=== PATIENT | male | born 1970 | race Caucasian/White ===

== ENCOUNTER → 2018-05-01 10:31 | Outpatient (CLI) | payer BC ==
[~2018-05-01 10:31] MED LIST: BUSPAR 15 MG TA15 MG PO; CARVEDILOL TAB 3.1; CYCLOBENZAPRINE10 MG PO; EFFIENT10 MG PO; LISINOPRIL2.5 MG PO; LOPRESSOR25 MG PO; NORCO 10-325 TA1 TAB PO; PRAVACHOL80 MG PO; XANAX1 MG PO
[2018-05-09 12:15] VITALS: BMI 23.4
== END | disposition home or self-care (01) ==
LOC: D.HCCARDIO 10:31
DX: I25.119 Atherosclerotic heart disease of native coronary artery with unspecified angina pectoris (principal); I42.9 Cardiomyopathy, unspecified

== ENCOUNTER 2018-05-09 10:56 | Outpatient (CLI) | payer BC ==
[~2018-05-09] VITALS: Ht 177.8 cm; Wt 74.1 kg
--- NOTE | ~2018-05-09 | HEMODYNAMI ---
PATIENT:DOUGLAS VICTORIA MEDICAL RECORD: [id number] : 72 LOCATION:[facility] ADMISSION DATE: 05/09/18 Generatedon:05/09/201813:40 Patient name: DOUGLAS VICTORIA Patient #: [id number] SSN: : 1970 Date of study: 05/09/2018 Page: Of Hemodynamic Procedure Report Patient Data Patient Demographics Procedure consent was obtained First Name: DOUGLAS Gender: Male Last Name: JULIEN : 1970 [facility] Initial: JALYN Age: 47 year(s) Patient #: [id number] Race: Unknown Additional ID: [id number] Contact details [address]: [address] [place] [address] 73 State: [place] City: [place] Zip code: [address] Admission Admission Data Admission Date: 05/09/2018 Admission Time: 10:56 Procedure Procedure Types Cath Procedure Diagnostic Procedure LHC LHC w/Coronaries PCI Procedure Coronary Stent Coronary Stent Initial Procedure Description Procedure Date Procedure Date: 05/09/2018 Procedure Start Time: 13:08 Procedure End Time: 13:32 Procedure Staff Name Function Douglas Gregg MD Performing Physician Darlene Luong RT Scrub Romero Beck RT Monitor William Murguia RN Nurse Procedure Data Cath Procedure Fluoroscopy Diagnostic fluoroscopy Total fluoroscopy Time: 4.3 time: 4.3 min min Diagnostic fluoroscopy Total fluoroscopy dose: 693 dose: 693 mGy mGy Contrast Material Contrast Material Type Amount (ml) Isovue 300 106 Entry Location Entry Primary Successful Side Size Upsize Upsize Entry Closure Succes sful Closure Location (Fr) 1 (Fr) 2 (Fr) Remarks Device Remarks Femoral Right 5 Fr 6 Fr Exoseal artery Short Diagnostic catheters Device Type Used For End Catheter Placement MULTIPACK JL 4.0 5Fr Left Coronary catheter Angiography MULTIPACK 3DRC 5Fr Right Coronary catheter Angiography MULTIPACK Pigtail 5 Fr LV Angiography catheter Procedure Complications No complications Procedure Medications Medication Administration Route Dosage 0.9% NaCl I.V. 100 ml/hr Oxygen etCO2 Nasal cannula 2 l/min Heparin Flush Bag added to field 2 bags (1000units/500ml NS) Lidocaine 2% added to field 20 Versed I.V. 2 mg Fentanyl I.V. 100 mcg Versed I.V. 2 mg Fentanyl I.V. 100 mcg Versed I.V. 2 mg Heparin Bolus I.V. 7500 units Fentanyl I.V. 100 mcg Effient P.O. 60 mg Hemodynamics Rest Heart Rate: 73 (bpm) Pressure Samples Time Site Value (mmHg) Purpose Heart Use Rate(bpm) 13:18 LV 107/-5,12 Snapshot 74 13:19 LV 103/-6,6 EDP 88 13:19 AO 95/50(71) Pullback 77 13:19 LV 110/7,9 Pullback 77 Gradients Valve Time Site 1 Site 2 Mean SEP/DFP Peak To Heart Use (mmHg) (sec/min) Peak Rate (mmHg) (bpm) Aortic 13:19 LV AO 9 20 15 77 110/7,9 95/50(71) Calculations Valve P-P Mean Valve Index Valve Source Name Gradient Area Flow (cm2) Aortic 15 9 15 9 Snapshots Pre Cath Intra NCS Post Cath Vital Signs Time Heart Resp SPO2 etCO2 NIBP (mmHg) Rhythm Pain Sedation Rate (ipm) (%) (mmHg) Status Level (bpm) 12:54:19 78 16 100 22.4 127/83(102) NSR 0 (11) 10(A) , No pain 12:58:29 74 14 100 31.4 116/73(96) NSR 0 (11) 10(A) , No pain 13:02:36 71 12 100 33.7 110/68(87) NSR 0 (11) 10(A) , No pain 13:06:40 75 14 100 37.4 108/70(83) NSR 0 (11) 10(A) , No pain 13:10:46 74 13 99 37.4 100/62(77) NSR 0 (11) 10(A) , No pain 13:14:50 69 17 97 27.7 105/63(82) NSR 0 (11) 10(A) , No pain 13:18:56 75 14 98 38.1 98/61(76) NSR 0 (11) 10(A) , No pain 13:22:57 69 22 99 35.9 104/62(77) NSR 0 (11) 10(A) , No pain 13:27:05 67 10 99 35.2 94/51(73) NSR 0 (11) 10(A) , No pain 13:31:07 84 15 98 33.7 98/61(75) NSR 0 (11) 10(A) , No pain Medications Time Medication Route Dose Verified Delivered Reason Notes Effectiveness by by 12:54:15 0.9% NaCl I.V. 100 William William Per physician ml/hr Blade Murguia RN RN 12:54:28 Oxygen etCO2 2 William William Per physician Nasal l/min Blade Murguia cannula RN RN 12:54:45 Heparin Flush added 2 William William used for Bag to bags Blade Murguia procedure (1000units/500ml RN RN NS) 12:54:55 Lidocaine 2% added 20ml William William for local to vial Blade Murguia anesthetic field DA SILVA RN 13:05:34 Versed I.V. 2 mg William William for sedation Blade Murguia RN RN 13:05:44 Fentanyl I.V. 100 William William for sedation mcg Blade Murguia RN RN 13:07:34 Versed I.V. 2 mg William William for sedation Blade Murguia RN RN 13:07:41 Fentanyl I.V. 100 William William for sedation mcg Blade Murguia RN RN 13:09:41 Versed I.V. 2 mg William William for sedation Blade Murguia RN RN 13:24:07 Heparin Bolus I.V. 7,500 William William for units Blade Murguia anticoagulation RN RN 13:24:56 Fentanyl I.V. 100 William William for sedation mcg Blade Murguia RN RN 13:33:39 Effient P.O. 60 mg William William for Blade Murguia antiplatelet RN RN therapy Procedure Log Time Note 12:39:11 Diagnostic Cath Status : Elective 12:39:40 Romero Beck RT(R) sent for patient. Start room use. 12:39:41 Time tracking: Regular hours (M-F 7:00 - 5:00) 12:39:45 Plan of Care:Hemodynamics will remain stable., Cardiac rhythm will remain stable., Comfort level will be maintained., Respiratory function will remain adequate., Patient/ family verbilizes understanding of procedure., Procedure tolerated without complication., Recovers from procedure without complications.. 12:47:38 Patient received from Pre/Post Procedure Room to CCL 2 Alert and oriented. Tansferred to table in Supine position. 12:47:40 Warm blankets applied, and jerald hugger turned on for patient comfort. 12:47:40 Correct patient and procedure confirmed by team. 12:47:41 Signed procedure consent form obtained from patient. 12:47:42 ECG and BP/O2 sat monitors applied to patient. 12:53:12 Vital chart was started 12:53:13 Baseline sample Acquired. 12:53:16 Rhythm: sinus rhythm 12:53:18 Full Disclosure recording started 12:53:23 H&P Date Dictated: 05/09/2018 Within 30 days and on chart., H&P Addendum completed by physician on day of procedure. (MUST COMPLETE FOR ALL OUTPATIENTS). 12:53:26 Pre-procedure instructions explained to patient. 12:53:27 Pre-op teaching completed and patient verbalized understanding. 12:53:28 Family in waiting room. 12:53:29 Patient NPO since Midnight. 12:53:31 Is the patient allergic to Iodine/contrast media? Yes. 12:53:32 Was the patient premedicated? Yes 12:53:33 Is patient on blood thinner?No 12:53:58 Patient diabetic? No. 12:54:00 Previous problem with sedation/anesthesia? No ? 12:54:02 Snore? Yes 12:54:03 Sleep apnea? No 12:54:04 Deviated septum? No 12:54:05 Opens mouth fully? Yes 12:54:06 Sticks out tongue? Yes 12:54:11 Airway obstruction? No ? 12:54:14 Dentures? No ? 12:54:15 0.9% NaCl 100 ml/hr I.V. was administered by William Murguia RN; Per physician; 12:54:17 Pre procedure: right dorsailis pedis pulse 2+ Normal; easily identifiable; not easily obliterated 12:54:19 Pre procedure: left dorsailis pedis pulse 2+ Normal; easily identifiable; not easily obliterated 12:54:21 Patient pain scale 0/10 ?. 12:54:27 IV patent on arrival in left forearm with 0.9% NaCl at [facility]. 12:54:28 Oxygen 2 l/min etCO2 Nasal cannula was administered by William Murguia RN; Per physician; 12:54:29 Lab results completed and on chart. 12:54:37 Right groin area was prepped with chlora-prep and draped in sterile fashion 12::38 Alarms reviewed by R. N. 12:54:38 Sharps counted by scrub and verified by R.N. 12:54:45 Heparin Flush Bag (1000units/500ml NS) 2 bags added to field was administered by William Murguia RN; used for procedure; 12:54:55 Lidocaine 2% 20ml vial added to field was administered by William Murguia RN; for local anesthetic; 13:04:38 Physician arrived 13::38 --------ALL STOP TIME OUT------ 13:04:39 Final Timeout: patient, procedure, and site verified with staff and physician. All members of the team are in agreement. 13:05:09 Right groin site verified by team. 13:05:12 Physical assessment completed. ASA score P 2 - A patient with mild systemic disease as per Douglas Gregg MD. 13:05:16 Sedation plan: IV Moderate Sedation Medication:Versed, Fentanyl 13:05:23 Use device set Femoral Dx 13:05:24 ACIST Syringe (11161) opened to sterile field. 13:05:25 Bag Decanter (2002) opened to sterile field. 13:05:25 Medline Cath Pack ([id number]) opened to sterile field. 13:05:26 DIAGNOSTIC WIRE .035 260cm J wire (281452) opened to sterile field. 13:05:27 ACIST Hand Control (68249) opened to sterile field. 13:05:27 ACIST Manifold (74365) opened to sterile field. 13:05:28 DIAGNOSTIC Multipack 5Fr catheter set (YB1264) opened to sterile field. 13:05:28 Tegaderm 4 x 4 (1626W) opened to sterile field. 13:05:30 SHEATH 5FR Orlando (NJL481) opened to sterile field. 13:05:34 Versed 2 mg I.V. was administered by William Murguia RN; for sedation; 13:05:44 Fentanyl 100 mcg I.V. was administered by William Murguia RN; for sedation; 13:07:34 Versed 2 mg I.V. was administered by William Murguia RN; for sedation; 13::41 Fentanyl 100 mcg I.V. was administered by William Murguia RN; for sedation; 13:08:20 Zero performed for pressure channel P1 13:08:25 Procedure started. 13:08:41 Local anesthetic to right femoral artery with Lidocaine 2% by Douglas Gregg MD.INITIAL ACCESS ONLY 13:08:52 A 5 Fr sheath was inserted into the Right Femoral artery 13::41 Versed 2 mg I.V. was administered by William Murguia RN; for sedation; 13:11:50 A MULTIPACK JL 4.0 5Fr catheter was advanced over the wire and used for Left Coronary Angiography. 13:11:54 LCA angiography performed. 13:15:13 Baseline sample Acquired. 13:15:18 Catheter exchanged over wire. 13:16:02 A MULTIPACK 3DRC 5Fr catheter was advanced over the wire and used for Right Coronary Angiography. 13:16:07 RCA angiography performed. 13:17:12 Catheter exchanged over wire. 13:17:18 A MULTIPACK Pigtail 5 Fr catheter was advanced over the wire and used for LV Angiography. 13:17:39 LV angiography performed. 13:17:55 LV gram done using LOVELL 13:18:03 LV hemodynamics recorded. 13:18:08 Injector settings: Ml/sec: 10, Volume: 20, 13:19:24 EF : 35 % 13:19:57 Catheter exchanged over wire. 13:21:24 SHEATH 6FR [place] (LNG641) opened to sterile field. 13:21:31 TUBING High Pressure Extension Tubing (Cristino) ([id number]) opened to sterile field. 13:21:36 INFLATOR Merit BasixCompak (TR8149) opened to sterile field. 13:21:51 Sheath upsized to a 6 Fr Short. 13:22:51 6 Fr XBLAD 3.5 guide catheter was inserted over the wire 13:23:16 BMW 300cm Fowler 2 J wire ([id number]) opened to sterile field. 13:23:52 BMW 2 wire advanced. 13:24:07 Heparin Bolus 7,500 units I.V. was administered by William Murguia RN; for anticoagulation; 13:24:56 Fentanyl 100 mcg I.V. was administered by William Murguia RN; for sedation; 13:26:58 Wire advanced across lesion. 13:29:19 Place stent Inflation Number: 1 A MARIYA OTW 3.5 x 18 stent ([id number]) was prepped and advanced across the Mid CX. The stent was deployed at 12 DARION for 0:16 (min:sec). 13:29:57 Stent catheter was removed intact over wire. 13:29:58 Wire removed. 13:30:00 Guide catheter removed. 13:30:08 Sheath removed intact; hemostasis achieved with Exoseal to the Right Femoral artery. 13:30:17 EXOSEAL 6Fr (EX600) opened to sterile field. 13:30:20 Procedure ended.(Physican Out) 13:30:41 Fluoroscopy time 04.30 minutes. 13:30:45 Contrast amount:Isovue 300 106ml. 13:30:50 Fluoroscopy dose: 693 mGy 13:30:50 Flurop Dose total: 693 13:30:51 Sharps counted by scrub and verified by R.N. 13:30:52 Insertion/operative site no bleeding no hematoma. 13:30:55 Post-op/insertion site Right Femoral artery dressed using a 4 x 4 and Tegaderm. 13:31:13 Procedure type changed to Cath procedure, Diagnostic procedure, LHC, LHC w/Coronaries, PCI procedure, Coronary Stent, Coronary Stent Initial 13:31:43 Post right femoral artery:stable 13:31:45 Post Procedure Pulses reassessed and unchanged 13:31:47 Post procedure: right dorsailis pedis pulse 1+ Palpable, but thready & weak; easily obliterated. 13:31:51 Post procedure rhythm: sinus rhythm 13:31:52 Post procedure instruction explained to patient.Patient verbalizes understanding. 13:31:54 Procedure and supply charges have been captured, reviewed, submitted and are correct. 13:32:11 Procedure Complication : No complications 13:32:13 Vital chart was stopped 13:32:14 See physician's report for complete and final results. 13:32:18 Report given to Pre/Post Procedure Room. 13:32:23 Patient transfered to Pre/Post Procedure Room with Stretcher. 13:32:25 Procedure ended. 13:32:25 Full Disclosure recording stopped 13:32:39 ACC-PCI Only Patient was given prescriptions, or instructed by Douglas Gregg MD to start/continue the following medications upon discharge: Effient 13:32:42 End room use (Document Last) 13:33:39 Effient 60 mg P.O. was administered by William Murguia RN; for antiplatelet therapy; Intervention Summary Intervention Notes Time ActionType Lesion and Equipment Action# Pressure Duration Attributes Used 13:29:19 Place stent Mid CX MARIYA OTW 3.5 1 12 00:16 x 18 stent ([id number]) Device Usage Item Name Manufacture Quantity Catalog Hospital Part Current Mini mal Lot# / Number Charge Number Stock Stock Serial# Code ACIST Syringe Acist 1 31640 314206 809705 885002 20 (93821) Medical Systems Inc Bag Decanter Microtek 1 2001S 873569 15065 426414 5 () Medical Inc. Medline Cath Medline 1 [id number] 598927 94999 039303 5 Pack ([id number]) DIAGNOSTIC [facility] 1 501956 539017 660453 770384 30 WIRE .035 260cm J wire (387842) ACIST Hand Acist 1 75935 882183 145236 904625 5 Control Medical (70141) Systems Inc ACIST Acist 1 13247 248917 768340 144190 5 Manifold Medical (92651) Systems Inc DIAGNOSTIC Cardinal 1 KE1940 761688 48230 875205 30 Multipack 5Fr Health catheter set (AO9379) Tegaderm 4 x 3M 1 1626W 641870 032220 042677 5 4 (1626W) SHEATH 5FR Terumo 1 XUN365 489177 326706 383482 5 [place] (AZJ119) MULTIPACK JL Cardinal 1 898507 5 4.0 5Fr Health catheter MULTIPACK Cardinal 1 652139 5 3DRC 5Fr Health catheter MULTIPACK Cardinal 1 622638 5 Pigtail 5 Fr Health catheter SHEATH 6FR Terumo 1 RSZ026 740855 693169 544357 40 [place] (ZBE423) TUBING High Merit 1 [id number] 064267 24827 416833 10 Pressure Medical Extension Tubing (Gregg) (HI3257R) INFLATOR Merit 1 SU1755 651778 653789 070390 15 Merit Medical BasixCompak (YL8290) BMW 300cm Robles 1 [id number] 877420 925292 634080 5 Fowler 2 J Vascular wire ([id number]) MARIYA OTW 3.5 Medtronic 1 [id number] 646346 1953630 747351 5 [id number] x 18 stent ([id number]) EXOSEAL 6Fr Cardinal 1 EX600 203639 736210 528122 10 (EX600) Health Signature Audit [place] Stage Time Signature Unsigned Intra-Procedure 05/09/2018 Romero Beck RT(R) 1:40:14 PM Signatures Monitor : Romero Beck RT Signature : Date : Time : [id number] [place] [address]
[2018-05-09] MEDS ORDERED: CARVEDILOL TAB 3.1 (12:09)
[2018-05-09] MEDS ORDERED: LISINOPRIL2.5 MG PO (12:09)
[2018-05-09] MEDS ORDERED: XANAX1 MG PO (12:10)
[2018-05-09] MEDS ORDERED: LOPRESSOR25 MG PO (12:10)
[2018-05-09] MEDS ORDERED: PRAVACHOL80 MG PO (12:11)
[2018-05-09] MEDS ORDERED: NORCO 10-325 TA1 TAB PO (12:11)
[2018-05-09] MEDS ORDERED: CYCLOBENZAPRINE10 MG PO (12:11)
[2018-05-09] MEDS ORDERED: BUSPAR 15 MG TA15 MG PO (12:13)
[2018-05-09 12:15] VITALS: BP 114/71; Ht 177.8 cm; Wt 74.1 kg
[2018-05-09 12:32] LABS: BASOPHILS 0.1 % (0-2); EOSINOPHILS 0 % (0-7); HEMATOCRIT 44.6 % (42.0-54.0); HEMOGLOBIN 15.6 g/dL (13.5-17.5); IMMATURE GRANULOCYTES 0.4 % (0-5); LYMPHOCYTES 7.4 % (15-50); MCV 88.7 fL (80.0-100.0); MEAN PLATELET VOLUME 10.3 fL (7.4-10.4); MONOCYTES 2.5 % (2-11); NEUTROPHILS 89.6 % (40-80); PLATELET COUNT 196 10x3/uL (130-400); RBC 5.03 10x6/uL (4.20-6.10); RDW 13.8 % (11.5-14.5); WBC 18.9 10x3/uL (4.8-10.8)
[2018-05-09 12:43] LABS: CALC OSMOLALITY 275 mosm/kg (275-300); CARBON DIOXIDE 27.3 mmol/L (21.0-32.0); CHLORIDE - SERUM 104 mmol/L (98-107); CREATININE - SERUM 1.1 mg/dL (0.6-1.3); GLUCOSE 108 mg/dL (74-106); POTASSIUM - SERUM 4.6 mmol/L (3.5-5.1); SODIUM 138 mmol/L (136-145); UREA NITROGEN 11 mg/dL (7-18); eGFR NON AFRICAN AMERICAN 76 mL/min (90-120)
[2018-05-09] MEDS ORDERED: EFFIENT10 MG PO (13:59)
--- NOTE | 2018-05-09 14:05 | NUR ---
PATIENT AWAKE, DRINKING SODA. VSS ON ROOM AIR. RIGHT GROIN DRESSING IS CDI, NO S/S OF BLEEDING OR HEMATOMA.
--- NOTE | 2018-05-09 14:35 | NUR ---
PATIENT AWAKE, FAMILY AT BEDSIDE. VSS ON ROOM AIR. RIGHT GROIN IS CDI, NO S/S OF BLEEDING OR HEMATOMA. TOLERATING PO FLUIDS. NO N/V. NO C/O PAIN, NUMBNESS, OR TINGLING.
--- NOTE | 2018-05-09 15:05 | NUR ---
PATIENT AWAKE, FAMILY AT BEDSIDE. VSS ON ROOM AIR. RIGHT GROIN DRESSING IS CDI, NO S/S OF BLEEDING OR HEMATOMA. NO N/V.
--- NOTE | 2018-05-09 15:35 | NUR ---
PATIENT AWAKE AND FIDGETY, REQUESTING HOME DOSE OF XANAX. VSS ON ROOM AIR. RIGHT GROIN DRESSING IS CDI, NO S/S OF BLEEDING OR HEMATOMA.
--- NOTE | 2018-05-09 16:05 | NUR ---
PATIENT ASSISTED WITH URINAL. VSS ON ROOM AIR. RIGHT GROIN IS CDI, NO S/S OF BLEEDING OR HEMATOMA. PHYSICIAN AT BEDSIDE TO UPDATE PATIENT.
--- NOTE | 2018-05-09 16:35 | NUR ---
PATIENT AWAKE, HEAD OF BED ELEVATED TO 30 DEGREES. RIGHT GROIN IS CDI, NO S/S OF BLEEDING OR HEMATOMA. VSS ON ROOM AIR.
--- NOTE | 2018-05-09 17:05 | NUR ---
HEAD OF BED ELEVATED TO 90 DEGREES. RIGHT GROIN DRESSING IS CDI, NO S/S OF BLEEDING OR HEMATOMA. VSS ON ROOM AIR. IV REMOVED. EDUCATION GIVEN TO PATIENT AND FAMILY REGARDING DISCHARGE INSTRUCTIONS AND MEDICATIONS, ALL QUESTIONS ANSWERED.
--- NOTE | 2018-05-09 17:20 | NUR ---
PATIENT TRANSPORTED VIA WHEELCHAIR TO CAR WITH FAMILY MEMBER DRIVING. ALL BELONGINGS WITH PATIENT.
== END 2018-05-09 17:20 ==
LOC: D.CATH 10:56
PROVIDERS: Internal Medicine Cardiovascular Disease
DX: I25.110 Atherosclerotic heart disease of native coronary artery with unstable angina pectoris (principal); R94.30 Abnormal result of cardiovascular function study, unspecified